=== PATIENT | male | born 1980 | race Caucasian/White ===

== ENCOUNTER 2020-09-26 15:38 | Emergency (ER) | payer OTHER ==
[2020-09-26] MEDS ORDERED: Lidocaine 4% Cream 5 GM TUBE w/ Tegaderm ONE ×2 (18:09→20:01)
[2020-09-26] MEDS ORDERED: Boostrix 0.5 ML (Tdap) VIAL ONE (18:09)
[2020-09-26] MEDS ORDERED: Triple Antibiotic Oint 1 GM Packet ONE (19:48)
== END 2020-09-26 20:05 | disposition home or self-care (01) ==
LOC: ERS 15:38
DX: S06.9X9A Unspecified intracranial injury with loss of consciousness of unspecified duration, initial encounter (principal); S01.01XA Laceration without foreign body of scalp, initial encounter; W18.11XA Fall from or off toilet without subsequent striking against object, initial encounter
CPT/HCPCS: 12002; 70450; 90471; 90715; 93005